=== PATIENT | female | born 1980 ===

== ENCOUNTER → 2018-10-31 | Day surgery (SDC) | payer OTHER ==
[~2018-10-31] MED LIST: HYDROCHLOROTH12.5 MG PO
== END | disposition home or self-care (01) ==
LOC: CIR.AMB 08:32
DX: L98.7 Excessive and redundant skin and subcutaneous tissue (principal)

== ENCOUNTER 2019-03-12 13:30 | Inpatient (IN) | payer OTHER ==
[~2019-03-12] VITALS: Ht 172.7 cm; Wt 90.7 kg
[2019-03-12] MEDS ORDERED: IRON236 MG PO (16:22)
== END 2019-03-14 17:10 | DRG 621 ==
LOC: ADM 13:30 → EDSTATUS 13:30 → OB/GYN 03-13 06:25 → O/R 03-13 06:25 → SURH 03-13 07:00 → OB/GYN 03-13 15:27
PROVIDERS: ADMIT Specialist
PROC: 02H633Z Insertion of Infusion Device into Right Atrium, Percutaneous Approach (ICD-10-PCS; 2019-03-13)
PROC: 0W0F0ZZ Alteration of Abdominal Wall, Open Approach (ICD-10-PCS; principal; 2019-03-13 07:00)
DX: E65 Localized adiposity (principal); Z98.84 Bariatric surgery status